=== PATIENT | male | born 1990 | race Hispanic/Latino ===

== ENCOUNTER 2017-11-11 22:25 | Emergency (ER) | payer SELFPAY ==
[2017-11-11 22:30] VITALS: PULSE 97; RESP 16; TEMP 98.3; O2SAT 98
--- NOTE | 2017-11-11 23:36 | ED PDOC ---
HPI: Psych/Substance Abuse Time Seen by Provider: 11/11/17 22:39 Chief Complaint (Nursing): Substance Abuse History Per: Patient History/Exam Limitations: no limitations Onset/Duration Of Symptoms: Hrs Current Symptoms Are (Timing): Still Present Additional Complaint(s): Hx of recovering narcotic abuse presenting with resolved AMS, states he was smoking marijuana and was walking to get cigarettes, next thing he remembers he was in an ambulance. Denies any other drugs, alcohol. States he feels completely fine now and wants to leave ER. Patient takes xanax as prescribed. No PMD. Past Medical History Reviewed: Historical Data, Nursing Documentation, Vital Signs Vital Signs: Last Vital Signs Temp 98.3 F 11/11/17 22:26 Pulse 97 H 11/11/17 22:26 Resp 16 11/11/17 22:26 BP 140/88 11/11/17 22:26 Pulse Ox 98 11/11/17 22:26 - Medical History PMH: No Chronic Diseases - Family History Family History: States: Unknown Family Hx - Allergies Allergies/Adverse Reactions: Allergies Allergy/AdvReac Type Severity Reaction Status Date / Time No Known Allergies Allergy Verified 11/11/17 22:26 Review of Systems ROS Statement: Except As Marked, All Systems Reviewed And Found Negative Physical Exam - Reviewed Nursing Documentation Reviewed: Yes Vital Signs Reviewed: Yes - Physical Exam Appears: Positive for: Well, Non-toxic, No Acute Distress Head Exam: Positive for: ATRAUMATIC, NORMAL INSPECTION, NORMOCEPHALIC Skin: Positive for: Normal Color, Warm, DRY Eye Exam: Positive for: EOMI, Normal appearance, PERRL ENT: Positive for: Normal ENT Inspection Neck: Positive for: Normal, Painless ROM Cardiovascular/Chest: Positive for: Regular Rate, Rhythm Respiratory: Positive for: CNT, Normal Breath Sounds Gastrointestinal/Abdominal: Positive for: Normal Exam, Soft Back: Positive for: Normal Inspection Extremity: Positive for: Normal ROM Neurologic/Psych: Positive for: Alert, nurse receptionist II-XII, Oriented, Mood/Affect (normal ), Cerebellar Tests (normal), Gait (normal). Negative for: Motor/Sensory Deficits, Aphasia, Facial Droop - ECG O2 Sat by Pulse Oximetry: 98 Pulse Ox Interpretation: Normal Medical Decision Making Medical Decision MakinPM A/P: Hx of recovering drug abuse presenting with resolved AMS -offered patient CT head and accucheck, patient adamently refused -patient states that he feels fine now, has normal neuro exam, normal vitals -advised patient to f/u as outpatient -of note, patient left ER before discharge Disposition - Clinical Impression Clinical Impression: Drug abuse - Patient ED Disposition Is Patient to be Admitted: No - Disposition Disposition: Routine/Home Disposition Time: 23:36 Condition: FAIR
[2017-11-11 23:45] VITALS: BP 140/85
== END 2017-11-11 23:05 | disposition home or self-care (01) ==
LOC: H.ER 22:25
DX: F11.10 Opioid abuse, uncomplicated (principal); F12.90 Cannabis use, unspecified, uncomplicated